=== PATIENT | male | born 1995 | race Caucasian/White ===

== ENCOUNTER 2020-11-10 21:08 | Emergency (ER) | payer BC ==
[~2020-11-10] VITALS: Ht 188 cm; Wt 111.0 kg
[~2020-11-10 21:08] MED LIST: CIPROFLOXACN500 MG PO; EC-NAPROSYN500 MG PO; MEDDOSEPAK PO; METRONIDAZOL500 MG PO; MINOCYCLINE OR; NO HOME MEDS; PHENERGAN12.5 MG/TA PO; ULTRAM50 M1 PO; ZITHROMAX500 MG PO
[2020-11-10 22:04] VITALS: BP 128/89
== END 2020-11-11 05:32 | disposition home or self-care (01) | DRG 605 ==
LOC: ED 21:08
PROC: 0HQGXZZ Repair Left Hand Skin, External Approach (ICD-10-PCS; principal; 2020-11-10)
DX: S61.211A Laceration without foreign body of left index finger without damage to nail, initial encounter (principal); W26.0XXA Contact with knife, initial encounter; Y93.89 Activity, other specified; Y92.009 Unspecified place in unspecified non-institutional (private) residence as the place of occurrence of the external cause

== ENCOUNTER 2021-03-06 16:27 | Observation (INO) | payer OTHER ==
[~2021-03-06] VITALS: Ht 188 cm; Wt 109.0 kg
--- NOTE | 2021-03-06 16:40 | NUR ---
TO ROOM FOR TRIAGE
[2021-03-06 18:00] LABS: HEMATOCRIT 51.5 % (39.0-50.0); IMMATURE GRANULOCYTES 0.3 % (0.0-5.0); MEAN CELL VOLUME 85.3 fL CALC (80.0-100.0); MEAN CORPUSCULAR HGB 29.8 pG CALC (26.0-32.0); NEUT# 10.33 thou/uL (1.82-7.42); RED BLOOD COUNT 6.04 mill/uL (4.70-6.10); RED CELL DISTRI WIDTH 12.8 % (11.5-15.5)
[2021-03-06 18:12] LABS: ALBUMIN 5.3 g/dL (3.2-5.0); ALKALINE PHOSPHATASE 80 u/l (38-126); AMYLASE 75 u/l (30-110); BUN 17 mg/dL (9-20); BUN/CREATININE RATIO 17 (12-20 (CALC)); CHLORIDE 102 mmol/l (95-108); GFR > 60 ML/MIN (>=60 (CALC)); GFR FOR AFR.AMER. > 60 ML/MIN (>=60 (CALC)); LIPASE 54 u/l (23-300); SODIUM 137 mmol/l (137-146)
[2021-03-06 18:14] LABS: ANION GAP 20 (6-22 (CALC)); CARBON DIOXIDE 19 mmol/l (22-30); SGOT/AST 40 u/l (17-59); TOTAL PROTEIN 9.3 g/dL (6.3-8.2)
[2021-03-06 18:38] LABS: URINE BLOOD DIPSTICK NEGATIVE (NEGATIVE); URINE COLOR YELLOW; URINE GLUCOSE - DIPSTICK NEGATIVE (NEGATIVE); URINE KETONE NEGATIVE (NEGATIVE); URINE LEUK ESTERASE NEGATIVE (NEGATIVE); URINE PH 5.5 (4.5-8.0); URINE PROTEIN - DIPSTICK 100 mg/dL (NEG-TRACE); URINE SPECIFIC GRAVITY >=1.030; URINE UROBILINOGEN - DIPSTICK 0.2 E.U./dL (0.2)
[2021-03-06 18:39] LABS: URINE BILIRUBIN - DIPSTICK SMALL (NEGATIVE); URINE NITRITE - DIPSTICK NEGATIVE (Negative)
[2021-03-06 18:44] LABS: URINE MUCUS FEW hpf (NONE-FEW)
--- NOTE | 2021-03-06 19:00 | NUR ---
CARE ASSUMED, PT RESTING AWAITING CT RESULTS, WILL CONTINUE TO MONITOR.
--- NOTE | 2021-03-06 19:22 | NUR ---
MD AT BEDSIDE TO DISCUSS CT RESULTS AND PLAN OF CARE, PTS MOTHER AT BEDSIDE WITH PT
--- NOTE | 2021-03-06 19:58 | NUR ---
REPORT RECEIVED FROM Wanda SILVERMAN RN
--- NOTE | 2021-03-06 20:00 | NUR ---
REPORT CALLED TO BLANCA CABALLERO.
--- NOTE | 2021-03-06 20:35 | NUR ---
14F NG INSERTED INTO R NARE WITHOUT INCIDENT, AND PT TOLERATED WELL, IMMEDIATE RETURN OF CLEAR ORANGE YELLOW LIQ APPROX 350 ML
[2021-03-06 20:55] VITALS: BP 150/91
--- NOTE | 2021-03-06 20:55 | NUR ---
ALERT AND ORIENTED X 3, VS AND ASSEMENT COMPLETED. CLEAR LUNG SOUNDS THROUGHOUT BASES, PT ON RA,NORMAL HEART SOUNDS ACTIVE BOWEL SOUNDS THROUGHOUT ALL QUADRANTS, LAST REPORTED BOWEL MOVEMENT 03/06, LIQUID STOOL REPORTED.PT NPO AND NG TUBE FLOWING TO VACUMM #18 RFA IVF AT 100ML/HR, FLUSHED AND PATENT. PLAN OF CARE REVIEWED, CALL LIGHT AND BEDSIDE TABLE WITHIN REACH.
--- NOTE | 2021-03-06 20:55 | NUR ---
PT ARRIVED ON FLOOR ACCOMPANIED BY A DAPHNIE CABALLERO, VIA WHEELCHAIR
--- NOTE | 2021-03-06 20:55 | NUR ---
PT TRANSPORTED TO [facility] VIA WHEELCHAIR WITH ALL BELONGINGS.
--- NOTE | 2021-03-07 | NUR ---
PT COMPLAINTS OF THROAT PAIN, MEDICATED PER EMAR. UP TO THE RESTROOM AT THIS TIME. REMINDED PATIENT TO CALL RELATED TO NG TUBE. PT REUESTING WATER, ADVISED PT HE WAS NPO AND COULD NOT DRINK WATER. PROVIDED PT WITH ORAL SWABS AND MOUTHWASH WELL A CUP OF WATER TO MOISTEN HIS MOUTH CALL LIGHT AND BEDSIDE TABLE WITHIN REACH.
[2021-03-07 01:24] VITALS: BP 138/67
--- NOTE | 2021-03-07 03:30 | NUR ---
PATIENT RESTINF COMFORTABLY, AWOKEN BY WRITTER. DENIES ANY CURRENT NEEDS, NG TUBE SUCTIONING, PT STATES HE DOES NOT FEEL PAIN BUT HIS THROAT IS UNCOFRTABLE AND UNRELIEVED BY LOZENGES OR TORADOL. CADVISED PT TO CALL IF ASSITANCE IS NEEDED. CALL LIGHT AND BEDSIDE TABLE WITHIN REACH
[2021-03-07 04:36] VITALS: BP 131/73
[2021-03-07 05:35] LABS: MEAN CELL VOLUME 86.9 fL CALC (80.0-100.0); MEAN CORPUSCULAR HGB 29.5 pG CALC (26.0-32.0); RED BLOOD COUNT 5.18 mill/uL (4.70-6.10)
[2021-03-07 05:45] LABS: HEMOGLOBIN 15.3 g/dl (14.0-18.0)
[2021-03-07 05:48] LABS: ANION GAP 15 (6-22 (CALC)); BUN 18 mg/dL (9-20); BUN/CREATININE RATIO 19 (12-20 (CALC)); CARBON DIOXIDE 21 mmol/l (22-30); CHLORIDE 104 mmol/l (95-108); CREATININE 0.9 mg/dL (0.7-1.3); GFR > 60 ML/MIN (>=60 (CALC)); GFR FOR AFR.AMER. > 60 ML/MIN (>=60 (CALC)); SODIUM 136 mmol/l (137-146)
[2021-03-07 07:00] VITALS: BP 129/79
--- NOTE | 2021-03-07 07:05 | NUR ---
BEDESIDE REPORT RECEIVED, PT AWAKE SITTING UP IN BED WATCHING TV. WILL MONITOR.
[2021-03-07 11:12] VITALS: BP 129/79
[2021-03-07 14:50] VITALS: BP 127/74
--- NOTE | 2021-03-07 15:26 | NUR ---
Discharge instructions given. Patient verbalizes understanding of same. Discharged in stable condition via Wheelchair to Home with family. All belongings sent with pt.
== END 2021-03-07 15:27 | disposition home or self-care (01) | DRG 390 ==
LOC: ED 16:27 → ED-I 19:37 → ED 19:49 → MS2 19:50
PROVIDERS: ADMIT Hospitalist; ATTEND Hospitalist
DX: K56.600 Partial intestinal obstruction, unspecified as to cause (principal); Z20.822 Contact with and (suspected) exposure to COVID-19
CPT/HCPCS: G0378; Q9967; S0164